=== PATIENT | female | born 1985 | race African-American/Black ===

== ENCOUNTER 2020-09-20 05:58 | Day surgery (SDC) | payer BC, OTHER ==
[2020-09-20] MEDS ORDERED: FERRIC CARBOXYMALTOSE 750 MG in SODIUM CHLORIDE 250 ML IVPB ONE (09:00)
[2020-09-20 10:17] VITALS: BP 118/72; PULSE 80; TEMP 98.5
== END 2020-09-20 10:18 | disposition home or self-care (01) ==
LOC: JINFUSION 05:58
PROVIDERS: ATTEND Family Medicine
PROC: 3E033GC Introduction of Other Therapeutic Substance into Peripheral Vein, Percutaneous Approach (ICD-10-PCS; principal; 2020-09-20)
DX: D50.9 Iron deficiency anemia, unspecified (principal)
CPT/HCPCS: 81025; 96365; J1439

== ENCOUNTER 2020-10-05 04:44 | Day surgery (SDC) | payer BC, OTHER ==
[2020-10-05] MEDS ORDERED: FERRIC CARBOXYMALTOSE 750 MG in SODIUM CHLORIDE 250 ML IVPB ONE (08:00)
[2020-10-05 08:28] VITALS: TEMP 98.5
[2020-10-05 09:00] VITALS: BP 129/83; PULSE 68
== END 2020-10-05 10:00 | disposition home or self-care (01) ==
LOC: JINFUSION 04:44
PROVIDERS: ATTEND Family Medicine
PROC: 3E033GC Introduction of Other Therapeutic Substance into Peripheral Vein, Percutaneous Approach (ICD-10-PCS; principal; 2020-10-05)
DX: D50.9 Iron deficiency anemia, unspecified (principal)
CPT/HCPCS: 81025; 96365; J1439